=== PATIENT | female | born 1960 ===

== ENCOUNTER 2018-02-28 06:25 | Day surgery (SDC) | payer MEDICARE, MEDICAID ==
--- NOTE | 2018-02-26 20:15 | Pre-op HX & Phy Repo 2 SIG ---
DATE OF ADMISSION: 02/28/2018 DATE OF SURGERY: 02/28/2018. PREOPERATIVE DIAGNOSIS: Dense vitreous hemorrhage, left eye. BRIEF NOTE: This is a first [facility] retinal admission for this patient, who is a very nice 57-year-old lady with a long history of diabetes and diabetic retinopathy. She has undergone panretinal laser in both eyes earlier this year and was reasonably stable until the hemorrhage. Despite Avastin injections, the hemorrhage has failed to clear. She is admitted for vitrectomy. PAST OCULAR HISTORY: Remarkable for cataracts and diabetic retinopathy. PAST MEDICAL HISTORY: Remarkable for diabetes for 25 years as well as hypertension of 18 and thyroid disease. She does not smoke or drink. PHYSICAL EXAMINATION: EYES: Best vision at admission was 20/25, -2 in the right eye and hand motions in the left with pressures of 15. The anterior segment showed nuclear sclerosis in either lens. The fundus on the right showed extensive laser. There was a subhyaloid hemorrhage along the inferotemporal arcade. The macula was flat. The left fundus showed a dense vitreous hemorrhage. An ultrasound showed mobile vitreous with limited traction. ASSESSMENT: Vitreous hemorrhage, left eye. PLAN: The plan is to perform a pars plana vitrectomy with membrane dissection, endolaser, and Avastin injection on the left. The risks and benefits gone over with the patient with potential for infection, hemorrhage, glaucoma, and remote possibility of loss of the eye. The risk of anesthesia was discussed. The patient understands and consents to surgery, which will be performed on Monday. Sd Vasquez M.D. DR: NATANAEL JOB#: [id number] CC:
[~2018-02-28] VITALS: Ht 152.4 cm; Wt 68.9 kg
[2018-02-28] VITALS (10 sets, daily range): BP systolic 130–188; BP diastolic 71–89
--- NOTE | 2018-02-28 05:48 | Pre-Procedure Note/Attestation ---
Pre-Procedure Note/Attestation Complete Prior to Procedure Planned Procedure: left Procedure Narrative: PPV, membrane peel, endolaser, Avastin injection Left eye Indications for Procedure Pre-Operative Diagnosis: Vitreous heme with traction Left eye Attestation I attest that I discussed the nature of the procedure; its benefits; risks and complications; and alternatives (and the risks and benefits of such alternatives ), prior to the procedure, with the patient (or the patient's legal in home sales representative). I attest that, if there was a reasonable possibility of needing a blood transfusion, the patient (or the patient's legal in home sales representative) was given the [facility] standardized written summary, pursuant to the [place] Blood Safety Act ([place] Health and Safety Code # 1645, as amended). I attest that I re-evaluated the patient just prior to the surgery and that there has been no change in the patient's H&P, except as documented below: TERESITA URIAS Feb 28, 2018 05:48
[~2018-02-28 06:25] MED LIST: Pred Forte 1% Opth Susp 1ml LEFT EYE SCH
[2018-02-28] MEDS ORDERED: EPINEPHrine 1mg/1ml Amp ONE (06:46)
[2018-02-28] MEDS ORDERED: Dexamethasone 4mg/ml vial ONE ×2 (06:47→07:00)
[2018-02-28] MEDS ORDERED: Povidone-Iodine 5% opth solution ONE (06:47)
[2018-02-28] MEDS ORDERED: Akten 3.5% 1ml Btl ONE (06:47)
[2018-02-28] MEDS ORDERED: Tobradex Opth Susp 2.5ml ONE (06:47)
[2018-02-28] MEDS ORDERED: Lidocaine 1% MPF 10mg/ml 5ml ONE (06:47)
[2018-02-28] MEDS ORDERED: BSS 15ml BTL ONE (06:47)
[2018-02-28] MEDS ORDERED: BSS 500ml btl ONE (06:47)
[2018-02-28] MEDS ORDERED: Kenalog-40 1ml Vial ONE (07:00)
[2018-02-28] MEDS ORDERED: Kenalog-10 5ml Inj ONE (07:00)
[2018-02-28] MEDS ORDERED: Lidocaine 2% MPF 5ml Vial INJ ONE (07:00)
[2018-02-28] MEDS ORDERED: Pred Forte 1% Opth Susp 1ml ONE (07:00)
[2018-02-28] MEDS ORDERED: Maxitrol Opth Oint 3.5gm ONE (07:00)
[2018-02-28] MEDS ORDERED: Sodium Hyaluronate 10 mg/ml 0.85ml ONE (07:01)
[2018-02-28] MEDS ORDERED: Tetracaine 0.5% Opth 4ml Soln ONE (07:01)
[2018-02-28 08:03] LABS: ANION GAP 7 mmol/L (5-15); BLOOD UREA NITROGEN 27 mg/dL (7-18); CALCIUM 8.7 MG/DL (8.5-10.1); CARBON DIOXIDE 24 MMOL/L (21-32); CHLORIDE 105 MMOL/L (98-107); CREATININE 1.9 MG/DL (0.55-1.30); POTASSIUM 4.8 MMOL/L (3.5-5.1); SODIUM 136 MMOL/L (136-145)
[2018-02-28] MEDS: Flurbiprofen 0.03% Opth Sol 2.5ml LEFT EYE SCH ×3 (08:05→08:27)
[2018-02-28] MEDS: Phenylephrine 2.5% Op 2ml Soln LEFT EYE SCH ×3 (08:05→08:27)
[2018-02-28] MEDS: Vigamox Opth Soln 3ml LEFT EYE SCH ×3 (08:05→08:27)
[2018-02-28] MEDS: Cyclopentolate 1% Opth Sol 2ml LEFT EYE SCH ×3 (08:05→08:27)
[2018-02-28 08:07] LABS: BASOPHILS % (AUTO) 0.9 % (0.0-2.0); EOSINOPHILS % (AUTO) 0.9 % (0.0-3.0); HEMATOCRIT 38.1 % (37.0-47.0); HEMOGLOBIN 13.3 G/DL (12.0-16.0); LYMPHOCYTES % (AUTO) 37.2 % (20.0-45.0); MEAN CORPUSCULAR VOLUME 82 FL (80-99); MONOCYTES % (AUTO) 9.1 % (1.0-10.0); NEUTROPHILS % (AUTO) 51.8 % (45.0-75.0); PLATELET COUNT 139 K/UL (150-450); RED BLOOD COUNT 4.66 M/UL (4.20-5.40); RED CELL DISTRIBUTION WIDTH 11.1 % (11.6-14.8); WHITE BLOOD COUNT 7.7 K/UL (4.8-10.8)
[2018-02-28] MEDS ORDERED: METOPROLOL TART25 MG ORAL (08:21)
[2018-02-28] MEDS ORDERED: NOVOLOG100 UNIT/3 SUBQ (08:21)
[2018-02-28] MEDS ORDERED: HYDRALAZINE HCL50 MG ORAL (08:21)
[2018-02-28] MEDS ORDERED: SYNTHROID25 MCG ORAL (08:21)
[2018-02-28] MEDS ORDERED: LOSARTAN POTASS50 MG ORAL (08:21)
[2018-02-28] MEDS ORDERED: LEVEMIR FL100 UNIT/1 SUBQ (08:21)
[2018-02-28] MEDS ORDERED: Propofol 200mg/20ml IV ONE (10:37)
--- NOTE | 2018-02-28 10:54 | Pre-Procedure Note/Attestation ---
Pre-Procedure Note/Attestation Complete Prior to Procedure Planned Procedure: left Procedure Narrative: PPV, membrane peel, Kenalog injection, endolaser, Avastin injection Left eye Indications for Procedure Pre-Operative Diagnosis: Vitreous heme with traction Left eye Attestation I attest that I discussed the nature of the procedure; its benefits; risks and complications; and alternatives (and the risks and benefits of such alternatives ), prior to the procedure, with the patient (or the patient's legal customer support representative). I attest that, if there was a reasonable possibility of needing a blood transfusion, the patient (or the patient's legal customer support representative) was given the [facility] standardized written summary, pursuant to the [place] Blood Safety Act ([place] Health and Safety Code # 1645, as amended). I attest that I re-evaluated the patient just prior to the surgery and that there has been no change in the patient's H&P, except as documented below: TERESITA URIAS Feb 28, 2018 10:54
[2018-02-28] MEDS ORDERED: Midazolam 2mg/2ml Inj ONE (11:00)
[2018-02-28] MEDS ORDERED: LR 1000ml ONE (11:00)
[2018-02-28] MEDS ORDERED: fentaNYL 100 mcg/2 mL IV ONE (11:00)
[2018-02-28] MEDS ORDERED: NS Irrig 1000ml ONE (11:00)
[2018-02-28] MEDS ORDERED: Sterile Water Irrig 1000ml IRRIG ONE (11:00)
--- NOTE | 2018-02-28 11:48 | Brief Operative Note ---
Immediate Post Operative Note Operative Note Chief Complaint: Clouds in vision Left eye Pre-op Diagnosis: Vitreous heme with traction Left eye Procedure: PPV, Removal of traction, Endolaser 1176 spots, Left eye Post-op Diagnosis: same as pre-op Surgeon: yaya Kitchen Bath Designer: none Anesthesiologist: Portia Olguin Anesthesia: MAC Specimen: none Complications: none Condition: stable Fluids: Per anethesia Estimated Blood Loss: none Drains: none Implant(s) used?: No TERESITA URIAS Feb 28, 2018 11:48
--- NOTE | 2018-02-28 12:36 | Immediate Post-Op Evaluation ---
Immediate Post-Op Evalulation Immediate Post-Op Evalulation Procedure: left eye vitrectomy Date of Evaluation: Feb 28, 2018 Time of Evaluation: 11:40 Blood Pressure Systolic: 130 Blood Pressure Diastolic: 80 Pulse Rate: 69 Respiratory Rate: 14 O2 Sat by Pulse Oximetry: 100 Temperature (Fahrenheit): 97.4 Nausea: No Vomiting: No Complications none Patient Status: awake, reacts, patent Hydration Status: adequate Drug: none JodiriPortia lieberman CRNA Feb 28, 2018 12:36
--- NOTE | 2018-02-28 12:37 | 48 Hour Post Anesthesia Eval ---
Post Anesthesia Evaluation Procedure: left eye vitrectomy Date of Evaluation: Feb 28, 2018 Time of Evaluation: 12:36 Blood Pressure Systolic: 160 0: 74 Pulse Rate: 70 Respiratory Rate: 14 O2 Sat by Pulse Oximetry: 99 Airway: patent Nausea: No Vomiting: No Hydration Status: adequate Mental Status/LOC: patient returned to baseline Follow-up Care/Observations: na Post-Anesthesia Complications: none Follow-up care needed: N/A Portia Jorgensen CRNA Feb 28, 2018 12:37
--- NOTE | 2018-02-28 12:38 | Anethesia Preoperative Eval ---
Anesthesia Pre-op PMH/ROS General Date of Evaluation: Feb 28, 2018 Time of Evaluation: 11:40 Anesthesiologist: lilliana ASA Score: ASA 3 Mallampati Score Class I : Soft palate, uvula, fauces, pillars visible Class II: Soft palate, uvula, fauces visible Class III: Soft palate, base of uvula visible Class IV: Only hard plate visible Mallampati Classification: Class III Surgeon: yaya Surgical Procedure: left eye vitrectomy Anesthesia History: none Family History: no anesthesia problems Allergies: Coded Allergies: No Known Allergies (Unverified , 02/26/18) Medications: see eMAR Past Medical History Cardiovascular: Reports: HTN; Denies: CAD, SC, valve dz, arrhythmia, other Pulmonary: Denies: asthma, COPD, MARZENA, other Gastrointestinal/Genitourinary: Denies: GERD, CRI, ESRD, other Endocrine: Reports: DM, hypothyroidism HEENT: Denies: cataract (L), cataract (R), glaucoma, AK CHIN (L), AK CHIN (R), other Hematology/Immune: Denies: anemia, DVT, bleeding disorder, other Musculoskeletal/Integumentary: Denies: OA, RA, DJD, DDD, edema, other Anesthesia Pre-op Phys. Exam Physician Exam Last Vital Signs Date Time Temp Pulse Resp B/P (MAP) Pulse Ox O2 Delivery O2 Flow Rate FiO2 02/28/18 12:20 59 15 164/74 95 Room Air 02/28/18 11:35 97.1 97.1 Constitutional: NAD Neurologic: CN 2-12 intact Cardiovascular: RRR Respiratory: CTA Gastrointestinal: S/NT/ND Airway Exam Mallampati Score: Class II MO: full Dentures: no upper, no lower Anesthesia Pre-op A/P Labs Hematology Test 02/28/18 07:45 White Blood Count 7.7 K/UL (4.8-10.8) Red Blood Count 4.66 M/UL (4.20-5.40) Hemoglobin 13.3 G/DL (12.0-16.0) Hematocrit 38.1 % (37.0-47.0) Mean Corpuscular Volume 82 FL (80-99) Mean Corpuscular Hemoglobin 28.4 PG (27.0-31.0) Mean Corpuscular Hemoglobin Concent 34.8 G/DL (32.0-36.0) Red Cell Distribution Width 11.1 % (11.6-14.8) L Platelet Count 139 K/UL (150-450) L Mean Platelet Volume 9.4 FL (6.5-10.1) Neutrophils (%) (Auto) 51.8 % (45.0-75.0) Lymphocytes (%) (Auto) 37.2 % (20.0-45.0) Monocytes (%) (Auto) 9.1 % (1.0-10.0) Eosinophils (%) (Auto) 0.9 % (0.0-3.0) Basophils (%) (Auto) 0.9 % (0.0-2.0) Chemistry Test 02/28/18 07:45 Sodium Level 136 MMOL/L (136-145) Potassium Level 4.8 MMOL/L (3.5-5.1) Chloride Level 105 MMOL/L (98-107) Carbon Dioxide Level 24 MMOL/L (21-32) Anion Gap 7 mmol/L (5-15) Blood Urea Nitrogen 27 mg/dL (7-18) H Creatinine 1.9 MG/DL (0.55-1.30) H Estimat Glomerular Filtration Rate 27.1 mL/min (>60) Glucose Level 204 MG/DL (74-106) H Calcium Level 8.7 MG/DL (8.5-10.1) Studies Pre-op Studies: EKG - sr Risk Assessment & Plan Plan: mac Status Change Before Surgery: No Pre-Antibiotics Drug: none Portia Jorgensen CRNA Feb 28, 2018 12:38
[2018-02-28] MEDS ORDERED: Norco 5mg/325mg tab ORAL PRN (14:00)
--- NOTE | 2018-02-28 16:45 | Operative Note - Dictated ---
DATE OF OPERATION: 02/28/2018 PREOPERATIVE DIAGNOSIS: Dense vitreous hemorrhage with traction, right eye. POSTOPERATIVE DIAGNOSIS: Dense vitreous hemorrhage with traction, right eye. PROCEDURES: 1. Pars plana vitrectomy. 2. Release of traction. 3. Endolaser left eye. SURGEON: Sd Vasquez M.D. MOLDING FITTER: None. ANESTHESIA: Local with sedation. ANESTHESIOLOGIST: Portia Jorgensen CRNA. JUSTIFICATION FOR SURGERY: This is a 57-year-old lady with a long history of diabetes, developed a dense nonclearing vitreous hemorrhage in the left eye. BRIEF NOTE: The patient was brought to the operative room and placed on the OR table in supine position. After a time-out was performed and agreed upon by the staff and initial monitoring secured by anesthesia, retrobulbar and Van Lint block were given in the standard way. When the blocks taken effect, she was prepped and draped in a normal manner. A lid speculum was inserted into the left eye. Using a 23-gauge trocar system, cannulas were placed in all except infranasal quadrant. Infusion secured inferotemporally. A central core vitrectomy was then performed taking care to avoid lens contact. This was extended posteriorly and peripherally leaving a small vitreous skirt. Areas of traction were noted extending from the optic nerve and along both arcades. These were gently separately flushed with the retina using the vitreous cutter. The macula itself was noted to be flat without significant traction. No significant bleeding was noted. When the peripheral vitrectomy was complete, the Endolaser was brought into the eye and a power of 0.3 puga, duration 0.2 seconds, a total of 1176 lesions were applied to areas of lightly treated retina and directly to areas where traction had been maximal and mild bleeding was seen. No problems were encountered. The two superior cannulas were removed from the eye and after cleaning vitreous from the sites, each sclerotomy was closed with 8-0 Vicryl suture. The eye was reinflated and the infusion sclerotomy was also closed with 8-0 Vicryl. Subconjunctival Decadron and gentamicin were then injected and the Maxitrol and atropine ointments were instilled. The eye was patched and shielded and the patient was taken to recovery in excellent condition. There were no complications. Sd Vasquez M.D. DR: STEVE JOB#: [id number] CC: Sd Vasquez M.D.; Fax#: [phone]
--- NOTE | 2018-03-02 13:49 | Cardiology Report ---
APPROVED REPORT EKG Measurement Heart [id number] ND 126P57 [id number] [id number] Normal sinus rhythm Normal ECG
== END 2018-02-28 13:15 | disposition home or self-care (01) ==
LOC: SUR 06:25
DX: H43.12 Vitreous hemorrhage, left eye (principal); H43.822 Vitreomacular adhesion, left eye; E10.319 Type 1 diabetes mellitus with unspecified diabetic retinopathy without macular edema; I10 Essential (primary) hypertension; E03.9 Hypothyroidism, unspecified
CPT/HCPCS: 36415; 67039; 80048; 82962; 85025; 93005; J0171; J1100; J2250; J2704; J3010; J3301; J3470; J7120; 94003; 94150